=== PATIENT | female | born 1950 ===

== ENCOUNTER → 2024-07-20 11:24 | Outpatient (REF) | payer MEDICARE, OTHER, SELFPAY | LOC: HWWDC 11:24 | PROVIDERS: ATTENDING PHYSICIAN Student in an Organized Health Care Education/Training Program | DX: Z13.820 Encounter for screening for osteoporosis (principal); Z12.31 Encounter for screening mammogram for malignant neoplasm of breast; M81.0 Age-related osteoporosis without current pathological fracture | CPT/HCPCS: 77063; 77067 ==

== ENCOUNTER → 2025-06-26 13:10 | Outpatient (REF) | payer MEDICARE, OTHER, SELFPAY | LOC: HWRCS 13:10 | PROVIDERS: ATTENDING PHYSICIAN Internal Medicine; FAMILY PHYSICIAN Student in an Organized Health Care Education/Training Program | DX: R07.9 Chest pain, unspecified (principal); Q23.1 Congenital insufficiency of aortic valve; I35.1 Nonrheumatic aortic (valve) insufficiency; I34.1 Nonrheumatic mitral (valve) prolapse | CPT/HCPCS: 93306 ==

== ENCOUNTER → 2025-06-30 07:44 | Outpatient (REF) | payer MEDICARE, OTHER, SELFPAY | LOC: HWRCS 07:44 | PROVIDERS: ATTENDING PHYSICIAN Internal Medicine; FAMILY PHYSICIAN Student in an Organized Health Care Education/Training Program | DX: R07.9 Chest pain, unspecified (principal); Q23.81 Bicuspid aortic valve; I35.1 Nonrheumatic aortic (valve) insufficiency; I34.1 Nonrheumatic mitral (valve) prolapse; I10 Essential (primary) hypertension; E78.2 Mixed hyperlipidemia | CPT/HCPCS: 78452; 93017; A9500; J2785 ==